=== PATIENT | female | born 1990 | race African-American/Black ===

== ENCOUNTER 2019-01-09 12:31 | Emergency (ER) | payer MEDICAID ==
[2019-01-09 12:37] VITALS: BP 136/72
--- NOTE | 2019-01-09 12:45 | ER Document Report ---
HPI - HPI Patient complains to provider of: med refill Time Seen by Provider: 01/09/19 12:36 Onset: This morning Quality of pain: No pain Context: Patient has recently relocated to this area and has not gotten established with a primary doctor. Patient does have an upcoming appointment with [facility]. Patient has a history of anxiety depression and bipolar disorder and has been on Abilify and Prozac for several years. Patient is requesting a refill of these medications until she can get into see her provider. Patient denies any suicidal or homicidal ideations. Associated Symptoms: None Exacerbated by: Denies Relieved by: Denies Similar symptoms previously: No Recently seen / treated by doctor: No - ROS ROS below otherwise negative: Yes Systems Reviewed and Negative: Yes All other systems reviewed and negative - CONSTITUTIONAL Constitutional: DENIES: Fever - RESPIRATORY Respiratory: DENIES: Coughing - GASTROINTESTINAL Gastrointestinal: DENIES: Nausea - DERM Skin Color: Normal Skin Problems: None Past Medical History - General Information source: Patient - Social History Smoking Status: Never Smoker Frequency of alcohol use: None Drug Abuse: None Occupation: [employer] Family History: Reviewed & Not Pertinent Psychiatric Medical History: Reports: Hx Anxiety, Hx Bipolar Disorder, Hx Depression Surgical Hx: Negative Vertical Provider Document - CONSTITUTIONAL Agree With Documented VS: Yes Exam Limitations: No Limitations General Appearance: WD/WN, No Apparent Distress Notes: Patient with normal affect and demeanor - HEENT HEENT: Atraumatic, Normocephalic - NECK Neck: Normal Inspection, Supple - RESPIRATORY Respiratory: Breath Sounds Normal, No Respiratory Distress - CARDIOVASCULAR Cardiovascular: Regular Rate, Regular Rhythm - MUSCULOSKELETAL/EXTREMETIES Musculoskeletal/Extremeties: MAEW - NEURO Level of Consciousness: Awake, Alert, Appropriate Motor/Sensory: No Motor Deficit - DERM Integumentary: Warm, Dry Course - Re-evaluation Re-evalutation: 01/09/19 Patient advised that she will be given a refill at this time but is encouraged to get any additional refills from her primary doctor or mental health provider. Patient denies any suicidal homicidal ideation. Patient does not meet IVC criteria at this time. Patient did provide medication bottles so that doses could be verified. - Vital Signs Vital signs: Temp Pulse Resp BP Pulse Ox 97.7 F 69 18 136/72 H 97 01/09/19 12:36 01/09/19 12:36 01/09/19 12:36 01/09/19 12:36 01/09/19 12:36 Discharge - Discharge Clinical Impression: Anxiety, Bipolar disease, chronic, Medication refill Depression Qualifiers: Depression Type: unspecified Qualified Code(s): F32.9 - Major depressive disord er, single episode, unspecified Condition: Stable Disposition: HOME, SELF-CARE Instructions: Anxiety (OM), Bipolar Disorder (OM), Depression (OM) Additional Instructions: Return immediately for any new or worsening symptoms Followup with your primary care provider, call tomorrow to make a followup appointment Follow-up with your mental health provider for refills in the future Prescriptions: Aripiprazole [Abilify 15 mg Tablet] 15 mg PO DAILY #30 tablet Fluoxetine HCl [Prozac] 20 mg PO DAILY #30 capsule Referrals: [facility] [Provider Group] - Follow up in 1 week
== END 2019-01-09 12:56 | disposition home or self-care (01) ==
LOC: ER 12:31
DX: Z76.0 Encounter for issue of repeat prescription (principal); F41.9 Anxiety disorder, unspecified; F31.9 Bipolar disorder, unspecified; Z79.899 Other long term (current) drug therapy
CPT/HCPCS: 99281